=== PATIENT | female | born 1980 | race Caucasian/White ===

== ENCOUNTER 2017-10-22 16:05 | Emergency (ER) | payer MEDICAID ==
[2017-10-22] MEDS: LORAZEPAM 0.5 MG TAB PO (17:48)
[2017-10-22] MEDS: KETOROLAC 15 MG INJ IM (17:49)
== END 2017-10-22 19:05 | disposition home or self-care (01) ==
LOC: FTE 16:05
DX: S13.9XXA Sprain of joints and ligaments of unspecified parts of neck, initial encounter (principal); V49.40XA Driver injured in collision with unspecified motor vehicles in traffic accident, initial encounter
CPT/HCPCS: 72040; 81025; 96372; 99284-25

== ENCOUNTER 2018-03-12 22:22 | Emergency (ER) | payer MEDICAID | END 2018-03-13 00:52 | disposition home or self-care (01) | LOC: FTE 03-13 00:52 | DX: R50.9 Fever, unspecified (principal); R40.2252 Coma scale, best verbal response, oriented, at arrival to emergency department; R40.2362 Coma scale, best motor response, obeys commands, at arrival to emergency department; R40.2142 Coma scale, eyes open, spontaneous, at arrival to emergency department; R05 Cough; R21 Rash and other nonspecific skin eruption; J45.909 Unspecified asthma, uncomplicated; I10 Essential (primary) hypertension | CPT/HCPCS: 71045; 99283-25 ==

== ENCOUNTER 2018-06-30 20:39 | Emergency (ER) | payer MEDICAID | END 2018-07-01 00:38 | disposition home or self-care (01) | LOC: FTE 07-01 00:38 | DX: L40.9 Psoriasis, unspecified (principal); I10 Essential (primary) hypertension; J45.909 Unspecified asthma, uncomplicated | CPT/HCPCS: 99283; Z7502 ==

== ENCOUNTER 2018-12-12 10:30 | Emergency (ER) | payer MEDICAID ==
[2018-12-12] MEDS: LIDOCAINE 1% (MPF) 5 ML VIAL INJ (11:25)
== END 2018-12-12 11:59 | disposition home or self-care (01) ==
LOC: FTE 10:30
DX: L60.0 Ingrowing nail (principal); I10 Essential (primary) hypertension; J45.909 Unspecified asthma, uncomplicated
CPT/HCPCS: 11765; 99282-25

== ENCOUNTER 2018-12-16 22:31 | Emergency (ER) | payer MEDICAID | END 2018-12-17 01:10 | disposition home or self-care (01) | LOC: FTE 12-17 01:10 | DX: L60.0 Ingrowing nail (principal); I10 Essential (primary) hypertension; J45.909 Unspecified asthma, uncomplicated | CPT/HCPCS: 99283; Z7502 ==